=== PATIENT | female | born 1980 | race Caucasian/White ===

== ENCOUNTER → 2024-07-16 09:12 | Outpatient (REF) | payer OTHER, SELFPAY ==
[2024-07-16 10:03] LABS: % Basophils 0.6 % (0-2); % Eosinophils 1.9 % (0-6); % Immature Granulocytes 0.2 % (0-0.5); % Lymphocytes 34.8 % (20.5-51.1); % Monocytes 7.9 % (1.7-9.3); % Neutrophils 54.6 % (42.2-75.2); Absolute Eosinophils 0.1 10^3/uL (0-0.7); Absolute Lymphocytes 1.9 10^3/uL (1.2-3.4); Absolute Monocytes 0.4 10^3/uL (0.1-0.6); Absolute Neutrophils 2.9 10^3/uL (1.4-6.5); Hematocrit 42.6 % (37.0-47.0); Hemoglobin 14.4 g/dL (12.0-16.0); Mean Corp Hgb Conc. 33.8 g/dL (33.0-37.0); Mean Corpuscular Hgb 32.6 pg (27.0-31.0); Mean Corpuscular Volume 96.4 fL (81.0-99.0); Mean Platelet Volume 9.1 fL (7.4-10.4); Nucleated Red Blood Cells % 0 %; Platelet Count 238 10^3/uL (130-400); Red Blood Cell Count 4.42 10^6/uL (4.20-5.40); White Blood Cell Count 5.3 10^3/uL (4.8-10.8)
[2024-07-16 10:34] LABS: Blood Urea Nitrogen 13 mg/dl (7-17); Calcium 10.4 mg/dl (8.4-10.2); Carbon Dioxide 26 mmol/L (22-30); Chloride 104 mmol/L (98-107); Glucose 91 mg/dl (70-99); Potassium 4.5 mmol/L (3.5-5.1); Sodium 141 mmol/L (135-145); eGFR > 60.00
== END ==
LOC: RCS 09:12
DX: Z01.812 Encounter for preprocedural laboratory examination (principal); Z01.810 Encounter for preprocedural cardiovascular examination; Z01.818 Encounter for other preprocedural examination; N65.0 Deformity of reconstructed breast; N65.1 Disproportion of reconstructed breast; Z90.13 Acquired absence of bilateral breasts and nipples; L90.5 Scar conditions and fibrosis of skin
CPT/HCPCS: 36415; 80048; 85025; 93005

== ENCOUNTER → 2024-08-16 10:00 | Outpatient (REF) | payer OTHER, SELFPAY ==
[2024-08-16 12:56] LABS: Free T4 0.94 ng/dl (0.78-2.19)
[2024-08-16 13:10] LABS: TSH 2.61 uIU/ml (0.47-4.68)
== END ==
LOC: HWRAD 10:00
PROVIDERS: ATTENDING PHYSICIAN Internal Medicine Endocrinology, Diabetes & Metabolism
DX: E04.2 Nontoxic multinodular goiter (principal); C73 Malignant neoplasm of thyroid gland
CPT/HCPCS: 36415; 76536; 84439; 84443